=== PATIENT | male | born 1995 | race Caucasian/White ===

== ENCOUNTER 2019-01-05 00:32 | Emergency (ER) | payer SELFPAY ==
[~2019-01-05] VITALS: Ht 185.4 cm; Wt 90.7 kg
[2019-01-05] MEDS ORDERED: CIPRO500 MG PO (01:29)
== END 2019-01-05 01:51 | disposition home or self-care (01) ==
LOC: ED 00:32
DX: L73.9 Follicular disorder, unspecified (principal)

== ENCOUNTER 2019-03-12 08:48 | Emergency (ER) | payer SELFPAY ==
[~2019-03-12] VITALS: Ht 187.9 cm; Wt 99.8 kg
[~2019-03-12 08:48] MED LIST: CIPRO500 MG PO
[2019-03-12 09:53] LABS: BASO % 0.2 % (0.0-1.0); EOS % 0.1 % (1.0-4.0); HEMATOCRIT 43.7 % (42.0-52.0); HEMOGLOBIN 15.4 g/dl (14.0-18.0); LYMPH # 0.5 10*3/uL (1.3-4.4); MEAN CORPUSCULAR HGB 30.3 pg (27.0-31.0); MEAN CORPUSCULAR HGB CONC 35.2 g/dl (33.0-37.0); MEAN PLATELET VOLUME 9.2 fl (9.6-12.3); MONO # 0.8 10*3/uL (0.1-1.0); MONO % 6.1 % (3.0-9.0); NEUT # 11.1 10*3/uL (2.3-7.9); NEUT % 89.2 % (47.0-73.0); PLATELET COUNT AUTOMATED 280 10*3/uL (130-400); RED BLOOD COUNT 5.08 10*6/uL (4.50-5.90); RED CELL DISTRI WIDTH 11.8 % (0-14.5); WHITE BLOOD COUNT 12.5 10*3/uL (4.8-10.8)
[2019-03-12 10:08] LABS: ALBUMIN 4.3 gm/dl (3.1-4.5); ALKALINE PHOSPHATASE 107 U/L (45-117); BUN 12 mg/dl (7-24); CHLORIDE 109 mmol/L (98-107); CREATININE 0.97 mg/dL (0.70-1.30); LIPASE 59 U/L (73-393); POTASSIUM 3.8 mmol/L (3.5-5.1); SGOT/AST 23 IU/L (3-35); SGPT/ALT 54 U/L (12-78); SODIUM 139 mmol/L (136-145); TOTAL PROTEIN 7.9 gm/dL (6.4-8.2)
[2019-03-12] MEDS ORDERED: ZOFRAN4 MG PO ×2 (10:50→10:53)
== END 2019-03-12 10:53 | disposition home or self-care (01) ==
LOC: ED 08:48
PROVIDERS: Physician Assistant
DX: A08.4 Viral intestinal infection, unspecified (principal); R11.10 Vomiting, unspecified; J02.9 Acute pharyngitis, unspecified

== ENCOUNTER 2019-10-11 01:48 | Emergency (ER) | payer SELFPAY ==
[~2019-10-11] VITALS: Ht 190.5 cm; Wt 104.3 kg
[~2019-10-11 01:48] MED LIST changes: +ZOFRAN4 MG PO
[2019-10-11] MEDS ORDERED: AMOXICILLIN500 M2 PO (02:32)
== END 2019-10-11 02:42 | disposition home or self-care (01) ==
LOC: ED 01:48
DX: I88.9 Nonspecific lymphadenitis, unspecified (principal); Z79.899 Other long term (current) drug therapy

== ENCOUNTER → 2020-02-16 | Outpatient (CLI) | payer SELFPAY ==
[~2020-02-16] MED LIST changes: +AMOXICILLIN500 M2 PO
== END | disposition home or self-care (01) ==
LOC: COVID19 09:42
PROVIDERS: ATTEND Family Medicine
DX: Z20.828 Contact with and (suspected) exposure to other viral communicable diseases (principal)

== ENCOUNTER 2020-05-17 11:32 | Emergency (ER) | payer SELFPAY ==
[~2020-05-17] VITALS: Ht 187.9 cm; Wt 106.6 kg
[2020-05-17 11:57] LABS: BASO % 0.3 % (0.0-1.0); EOS # 0.1 10*3/uL (0.0-0.4); EOS % 1.5 % (1.0-4.0); HEMATOCRIT 46.5 % (42.0-52.0); LYMPH # 1.1 10*3/uL (1.3-4.4); LYMPH % 12.3 % (27.0-41.0); MEAN CELL VOLUME 87.7 fl (80.0-94.0); MEAN CORPUSCULAR HGB 29.6 pg (27.0-31.0); MEAN CORPUSCULAR HGB CONC 33.8 g/dl (33.0-37.0); MEAN PLATELET VOLUME 9.2 fl (9.6-12.3); MONO # 0.9 10*3/uL (0.1-1.0); MONO % 9.9 % (3.0-9.0); NEUT % 75.6 % (47.0-73.0); PLATELET COUNT AUTOMATED 328 10*3/uL (130-400); RED CELL DISTRI WIDTH 12.7 % (0-14.5); WHITE BLOOD COUNT 9.3 10*3/uL (4.8-10.8)
[2020-05-17 12:14] LABS: ALKALINE PHOSPHATASE 137 U/L (45-117); BUN 12 mg/dl (7-24); CHLORIDE 109 mmol/L (98-107); CREATININE 1.01 mg/dL (0.70-1.30); POTASSIUM 4.2 mmol/L (3.5-5.1); SGOT/AST 14 IU/L (3-35); SGPT/ALT 34 U/L (12-78); SODIUM 141 mmol/L (136-145); TOTAL PROTEIN 7.7 gm/dL (6.4-8.2)
[2020-05-17 12:20] LABS: BILIRUBIN Negative (Negative); BLOOD Negative (Negative); CLARITY Clear (Clear); COLOR Yellow (Yellow); GLUCOSE Negative (Negative); KETONE Trace (Negative); LEUKO ESTERASE Negative (Negative); NITRITE Negative (Negative); PH 5.5 (4.5-8.0); SPECIFIC GRAVITY >= 1.030 (1.001-1.030)
[2020-05-17 12:44] LABS: BACTERIA 1+; MUCOUS 2+
[2020-05-17] MEDS ORDERED: ZOFRAN4 MG PO (15:14)
== END 2020-05-17 15:20 | disposition home or self-care (01) ==
LOC: ED 11:32
PROVIDERS: Nurse Practitioner
DX: K52.9 Noninfective gastroenteritis and colitis, unspecified (principal); R11.2 Nausea with vomiting, unspecified; F17.200 Nicotine dependence, unspecified, uncomplicated; Z79.2 Long term (current) use of antibiotics; Z79.899 Other long term (current) drug therapy

== ENCOUNTER 2020-10-05 14:15 | Emergency (ER) | payer SELFPAY ==
[~2020-10-05] VITALS: Ht 190.5 cm; Wt 108.9 kg
[2020-10-05 15:09] LABS: BASO % 0.2 % (0.0-1.0); EOS # 0.1 10*3/uL (0.0-0.4); EOS % 0.7 % (1.0-4.0); HEMATOCRIT 43.2 % (42.0-52.0); LYMPH # 1.4 10*3/uL (1.3-4.4); LYMPH % 13.9 % (27.0-41.0); MEAN CELL VOLUME 87.4 fl (80.0-94.0); MEAN CORPUSCULAR HGB 29.1 pg (27.0-31.0); MEAN CORPUSCULAR HGB CONC 33.3 g/dl (33.0-37.0); MEAN PLATELET VOLUME 9.4 fl (9.6-12.3); MONO # 0.8 10*3/uL (0.1-1.0); MONO % 7.7 % (3.0-9.0); NEUT # 7.7 10*3/uL (2.3-7.9); NEUT % 77.1 % (47.0-73.0); PLATELET COUNT AUTOMATED 320 10*3/uL (130-400); RED BLOOD COUNT 4.94 10*6/uL (4.50-5.90); RED CELL DISTRI WIDTH 12.2 % (0-14.5); WHITE BLOOD COUNT 9.9 10*3/uL (4.8-10.8)
[2020-10-05 15:26] LABS: ALBUMIN 3.5 gm/dl (3.1-4.5); ALKALINE PHOSPHATASE 112 U/L (45-117); BUN 8 mg/dl (7-24); CHLORIDE 106 mmol/L (98-107); CREATININE 0.86 mg/dL (0.70-1.30); LIPASE 55 U/L (73-393); POTASSIUM 3.7 mmol/L (3.5-5.1); SGOT/AST 11 IU/L (3-35); SGPT/ALT 26 U/L (12-78); SODIUM 136 mmol/L (136-145); TOTAL PROTEIN 7.1 gm/dL (6.4-8.2)
[2020-10-05 15:36] LABS: BILIRUBIN Negative (Negative); BLOOD Negative (Negative); CLARITY Clear (Clear); COLOR Yellow (Yellow); GLUCOSE Negative (Negative); KETONE Trace (Negative); LEUKO ESTERASE Negative (Negative); NITRITE Negative (Negative); PH 5.5 (4.5-8.0)
[2020-10-05 15:47] LABS: BACTERIA TRACE; EPITHELIAL CELLS 0-2; MUCOUS TRACE; RBC 0-2 rbc/hpf (0-2); WBC 0-2 wbc/hpf (0-5)
[2020-10-05] MEDS ORDERED: Motrin,Rufen800 MG PO (17:32)
== END 2020-10-05 18:30 | disposition home or self-care (01) ==
LOC: ED 14:15
PROVIDERS: Emergency Medicine
DX: K63.89 Other specified diseases of intestine (principal); Z79.2 Long term (current) use of antibiotics; Z79.899 Other long term (current) drug therapy

== ENCOUNTER → 2020-12-14 | Outpatient (CLI) | payer OTHER ==
[~2020-12-14] MED LIST changes: +Motrin,Rufen800 MG PO
== END | disposition home or self-care (01) ==
LOC: COVID19 16:51
PROVIDERS: ATTEND Student in an Organized Health Care Education/Training Program
DX: Z11.52 Encounter for screening for COVID-19 (principal)

== ENCOUNTER 2022-06-18 07:52 | Emergency (ER) | payer SELFPAY ==
[~2022-06-18] VITALS: Wt 99.8 kg
[2022-06-18] MEDS ORDERED: Motrin,Rufen800 MG PO (08:39)
[2022-06-18] MEDS ORDERED: AMOXICILLIN875 MG PO (08:39)
== END 2022-06-18 09:16 | disposition home or self-care (01) ==
LOC: ED 07:52
DX: J02.9 Acute pharyngitis, unspecified (principal)

== ENCOUNTER 2023-05-22 20:16 | Emergency (ER) | payer MEDICAID ==
[~2023-05-22] VITALS: Ht 185.4 cm; Wt 99.8 kg
[~2023-05-22 20:16] MED LIST changes: +AMOXICILLIN875 MG PO
[2023-05-22] MEDS ORDERED: ACETAMINOPHEN 325 MG TAB PO ONE (22:15)
[2023-05-22] MEDS ORDERED: MUCINEX D ER 11 EACH PO (23:21)
== END 2023-05-22 23:31 | disposition home or self-care (01) ==
LOC: ED 20:16
DX: J10.1 Influenza due to other identified influenza virus with other respiratory manifestations (principal); Z20.822 Contact with and (suspected) exposure to COVID-19; Z87.891 Personal history of nicotine dependence

== ENCOUNTER 2024-07-10 16:54 | Emergency (ER) | payer OTHER ==
[~2024-07-10] VITALS: Ht 182.8 cm; Wt 99.8 kg
[~2024-07-10 16:54] MED LIST changes: +MUCINEX D ER 11 EACH PO
== END 2024-07-10 17:22 | disposition home or self-care (01) ==
LOC: ED 16:54
DX: A63.0 Anogenital (venereal) warts (principal); Z79.899 Other long term (current) drug therapy

== ENCOUNTER → 2024-07-12 | Outpatient (CLI) | payer OTHER ==
[2024-07-12 17:28] LABS: BASO % 0.5 % (0.0-1.0); EOS # 0.1 10*3/uL (0.0-0.4); EOS % 0.9 % (1.0-4.0); HEMATOCRIT 42.6 % (42.0-52.0); MEAN CELL VOLUME 88.2 fl (80.0-94.0); MEAN CORPUSCULAR HGB 30.2 pg (27.0-31.0); MEAN CORPUSCULAR HGB CONC 34.3 g/dl (33.0-37.0); MEAN PLATELET VOLUME 9.1 fl (9.6-12.3); MONO # 0.4 10*3/uL (0.1-1.0); MONO % 6.7 % (3.0-9.0); NEUT # 4.3 10*3/uL (2.3-7.9); NEUT % 65.5 % (47.0-73.0); PLATELET COUNT AUTOMATED 349 10*3/uL (130-400); RED BLOOD COUNT 4.83 10*6/uL (4.50-5.90); WHITE BLOOD COUNT 6.6 10*3/uL (4.8-10.8)
[2024-07-12 18:38] LABS: ALKALINE PHOSPHATASE 98 U/L (46-116); BUN 7 mg/dl (9-23); CHLORIDE 106 mmol/L (98-107); FREE T4 1.43 ng/dl (0.89-1.76); POTASSIUM 3.5 mmol/L (3.4-5.1); SGPT/ALT 13 U/L (5-49); TOTAL PROTEIN 7.4 gm/dL (6.0-8.0)
== END | disposition home or self-care (01) ==
LOC: LAB 17:06
PROVIDERS: ATTEND Internal Medicine
DX: M25.561 Pain in right knee (principal); M25.562 Pain in left knee; K58.2 Mixed irritable bowel syndrome